=== PATIENT | female | born 1975 | race Caucasian/White ===

== ENCOUNTER 2019-07-13 19:37 | Emergency (ER) | payer SELFPAY ==
[~2019-07-13] VITALS: Ht 157.5 cm; Wt 90.7 kg
[2019-07-13 19:46] VITALS: BP 156/91
[2019-07-13 22:26] VITALS: BP 133/81
== END 2019-07-13 22:28 | disposition home or self-care (01) ==
LOC: MED 19:37
DX: M17.11 Unilateral primary osteoarthritis, right knee (principal)
CPT/HCPCS: 73562; 99283